=== PATIENT | female | born 1960 | race Caucasian/White ===

== ENCOUNTER 2018-05-16 07:37 | Outpatient (CLI) | payer OTHER ==
[~2018-05-16 07:37] MED LIST: ATOR40TA71 PO; FOLI1TAB16 PO; MULT1TAB74 PO; THI100T PO
[2018-05-16 08:51] LABS: BASOPHILS % (AUTO) 0.3 % (0-1); EOSINOPHILS # (AUTO) 0.2 X10'3 (0-0.9); EOSINOPHILS % (AUTO) 2.5 % (0-6); HEMATOCRIT 35.7 % (35.0-45.0); HEMOGLOBIN 12.3 g/dl (12.0-16.0); LYMPHOCYTES # (AUTO) 1.9 X10'3 (1.1-4.8); LYMPHOCYTES % (AUTO) 27.8 % (21-51); MEAN CORPUSCULAR HEMOGLOBIN 33.8 PG (27.0-31.0); MEAN CORPUSCULAR HGB CONC 34.5 % (33.0-36.5); MEAN CORPUSCULAR VOLUME 97.9 FL (78-98); MONOCYTES # (AUTO) 0.5 X10'3 (0-0.9); MONOCYTES % (AUTO) 6.6 % (2-12); NEUTROPHILS # (AUTO) 4.4 X10'3 (1.8-7.7); NEUTROPHILS % (AUTO) 62.8 % (42-75); PLATELET COUNT 301 X10'3 (140-440); RED BLOOD COUNT 3.64 X10'6 (4.20-5.60); RED CELL DISTRIBUTION WIDTH 12.9 % (11.5-14.5)
[2018-05-16 09:12] LABS: ALANINE AMINOTRANSFERASE 26 U/L (12-78); ALBUMIN 3.6 G/DL (3.4-5.0); ALKALINE PHOSPHATASE 76 IU/L (46-116); ANION GAP 8 (8-16); ASPARTATE AMINO TRANSFERASE 16 U/L (10-37); BILIRUBIN,TOTAL 0.3 MG/DL (0.1-1.0); BLOOD UREA NITROGEN 12 MG/DL (7-18); BUN/CREATININE RATIO 20.7 (6.6-38.0); CALCIUM 8.7 MG/DL (8.5-10.1); CHLORIDE 104 MMOL/L (99-107); CHOL/HDL RATIO 3.5 (0.00-4.99); CHOLESTEROL 211 MG/DL (0-200); CREATININE 0.58 MG/DL (0.40-0.90); GLUCOSE 96 MG/DL (70-104); HDL CHOLESTEROL 60 MG/DL (35-60); LDL CHOLESTEROL 132 MG/DL (50-100); POTASSIUM 4.2 MMOL/L (3.5-5.1); SODIUM 140 MMOL/L (135-145); TOTAL CARBON DIOXIDE 28.4 MMOL/L (24-32); TOTAL PROTEIN 7.2 G/DL (6.4-8.2); TRIGLYCERIDES 111 MG/DL (20-135); eGFR > 90 ML/MIN
== END 2018-05-16 23:59 | disposition home or self-care (01) ==
LOC: LAB 07:37
DX: Z00.01 Encounter for general adult medical examination with abnormal findings (principal); E03.8 Other specified hypothyroidism; Z87.891 Personal history of nicotine dependence
CPT/HCPCS: 36415; 80053; 80061; 84443; 84480; 85025

== ENCOUNTER 2019-05-30 07:44 | Outpatient (CLI) | payer OTHER ==
[2019-05-30 08:46] LABS: BASOPHILS % (AUTO) 0.4 % (0-1); EOSINOPHILS # (AUTO) 0.1 X10'3 (0-0.9); EOSINOPHILS % (AUTO) 1.6 % (0-6); HEMATOCRIT 36.5 % (35.0-45.0); HEMOGLOBIN 12.8 g/dl (12.0-16.0); LYMPHOCYTES # (AUTO) 2.2 X10'3 (1.1-4.8); LYMPHOCYTES % (AUTO) 33.1 % (21-51); MEAN CORPUSCULAR HEMOGLOBIN 33.6 PG (27.0-31.0); MEAN CORPUSCULAR VOLUME 96.1 FL (78-98); MEAN PLATELET VOLUME 8.1 FL (7.4-10.4); MONOCYTES # (AUTO) 0.4 X10'3 (0-0.9); NEUTROPHILS % (AUTO) 58.9 % (42-75); PLATELET COUNT 339 X10'3 (140-440); RED CELL DISTRIBUTION WIDTH 12.9 % (11.5-14.5); WHITE BLOOD COUNT 6.8 X10'3 (4.5-11.0)
[2019-05-30 09:07] LABS: ALANINE AMINOTRANSFERASE 25 U/L (12-78); ALBUMIN 3.8 G/DL (3.4-5.0); ALKALINE PHOSPHATASE 74 IU/L (46-116); ANION GAP 9 (8-16); ASPARTATE AMINO TRANSFERASE 23 U/L (10-37); BILIRUBIN,TOTAL 0.3 MG/DL (0.1-1.0); BLOOD UREA NITROGEN 15 MG/DL (7-18); BUN/CREATININE RATIO 18.5 (6.6-38.0); CALCIUM 9.7 MG/DL (8.5-10.1); CHLORIDE 104 MMOL/L (99-107); CHOL/HDL RATIO 3.5 (0.00-4.99); CHOLESTEROL 200 MG/DL (0-200); CREATININE 0.81 MG/DL (0.40-0.90); GLUCOSE 105 MG/DL (70-104); HDL CHOLESTEROL 57 MG/DL (35-60); LDL CHOLESTEROL 120 MG/DL (50-100); POTASSIUM 4.1 MMOL/L (3.5-5.1); SODIUM 141 MMOL/L (135-145); TOTAL CARBON DIOXIDE 27.7 MMOL/L (24-32); TOTAL PROTEIN 7.8 G/DL (6.4-8.2); TRIGLYCERIDES 167 MG/DL (20-135); eGFR 73 ML/MIN
[2019-05-31 07:35] LABS: THIIODOTHRONINE, FREE, SERUM 2.7 pg/mL (2.0-4.4)
[2019-05-31 08:16] LABS: MICROALB/CRT, RATIO 13.4 mg/g creat (0.0-30.0)
== END 2019-05-30 23:59 | disposition home or self-care (01) ==
LOC: LAB 07:44
PROVIDERS: ATTEND Physician Assistant
DX: E03.8 Other specified hypothyroidism (principal); E78.5 Hyperlipidemia, unspecified; Z87.891 Personal history of nicotine dependence
CPT/HCPCS: 36415; 80053; 80061; 82043; 82570; 84439; 84443; 84481; 85025

== ENCOUNTER 2019-05-31 08:48 | Outpatient (CLI) | payer OTHER | END 2019-05-31 23:59 | disposition home or self-care (01) | LOC: RAD 08:48 | DX: R10.11 Right upper quadrant pain (principal); Z87.891 Personal history of nicotine dependence | CPT/HCPCS: 76700 ==

== ENCOUNTER 2019-09-19 07:45 | Outpatient (CLI) | payer OTHER ==
[2019-09-19 08:36] LABS: HEMOGLOBIN A1C 5.6 % (4.5-6.2)
[2019-09-19 08:39] LABS: CHOL/HDL RATIO 3.8 (0.00-4.99); CHOLESTEROL 197 MG/DL (0-200); HDL CHOLESTEROL 52 MG/DL (35-60); LDL CHOLESTEROL 108 MG/DL (50-100); TRIGLYCERIDES 181 MG/DL (20-135)
== END 2019-09-19 23:59 | disposition home or self-care (01) ==
LOC: LAB 07:45
DX: E78.5 Hyperlipidemia, unspecified (principal); R73.01 Impaired fasting glucose
CPT/HCPCS: 36415; 80061; 83036

== ENCOUNTER 2020-07-03 06:07 | Outpatient (CLI) | payer BC ==
[~2020-07-03 06:07] MED LIST changes: +MULT-620 PO; -MULT1TAB74 PO
[2020-07-03 06:38] LABS: BASOPHILS % (AUTO) 0.4 % (0-1); EOSINOPHILS # (AUTO) 0.2 X10'3 (0-0.9); EOSINOPHILS % (AUTO) 2.6 % (0-6); HEMATOCRIT 39.2 % (35.0-45.0); HEMOGLOBIN 13.2 g/dl (12.0-16.0); LYMPHOCYTES # (AUTO) 2.5 X10'3 (1.1-4.8); LYMPHOCYTES % (AUTO) 33.7 % (21-51); MEAN CORPUSCULAR HEMOGLOBIN 31.7 PG (27.0-31.0); MEAN CORPUSCULAR HGB CONC 33.7 g/dL (33.0-36.5); MEAN CORPUSCULAR VOLUME 94.2 FL (78-98); MEAN PLATELET VOLUME 7.5 FL (7.4-10.4); MONOCYTES # (AUTO) 0.4 X10'3 (0-0.9); MONOCYTES % (AUTO) 5.5 % (2-12); NEUTROPHILS # (AUTO) 4.3 X10'3 (1.8-7.7); NEUTROPHILS % (AUTO) 57.8 % (42-75); PLATELET COUNT 342 X10'3 (140-440); RED BLOOD COUNT 4.17 X10'6 (4.20-5.60); WHITE BLOOD COUNT 7.4 X10'3 (4.5-11.0)
[2020-07-03 06:39] LABS: CLARITY,URINE CLOUDY (Clear); COLOR,URINE YELLOW (Yellow); GLUCOSE, URINE NEGATIVE (Neg); KETONES,URINE NEGATIVE (Neg); LEUKOCYTE ESTERASE ,URINE SMALL (Neg); NITRITES, URINE NEGATIVE (Neg); OCCULT BLOOD,URINE SMALL (Neg); PROTEIN,URINE NEGATIVE (Neg); UROBILINOGEN,URINE 0.2 E.U/dL (0.2-1.0)
[2020-07-03 06:43] LABS: UA COLLECTION TYPE CLN CATCH MIDSTREAM
[2020-07-03 06:49] LABS: RBC,URINE 0-2 /HPF (0-2); WBC,URINE 50-100 /HPF (0-4)
[2020-07-03 06:50] LABS: BACTERIA,URINE 1+ /HPF (Neg); SQUAMOUS EPITHELIAL CELL,UR MANY /LPF (FEW)
[2020-07-03 07:04] LABS: ALANINE AMINOTRANSFERASE 32 U/L (12-78); ALKALINE PHOSPHATASE 70 IU/L (46-116); ANION GAP 9 (8-16); ASPARTATE AMINO TRANSFERASE 19 U/L (10-37); BILIRUBIN,TOTAL 0.4 MG/DL (0.1-1.0); BLOOD UREA NITROGEN 14 MG/DL (7-18); BUN/CREATININE RATIO 18.4 (6.6-38.0); CALCIUM 9.5 MG/DL (8.5-10.1); CHLORIDE 105 MMOL/L (99-107); CHOLESTEROL 225 MG/DL (0-200); CREATININE 0.76 MG/DL (0.40-0.90); GLUCOSE 107 MG/DL (70-104); HDL CHOLESTEROL 56 MG/DL (35-60); LDL CHOLESTEROL 123 MG/DL (50-100); POTASSIUM 4.3 MMOL/L (3.5-5.1); SODIUM 142 MMOL/L (135-145); TOTAL CARBON DIOXIDE 27.6 MMOL/L (24-32); TRIGLYCERIDES 187 MG/DL (20-135); eGFR 78 ML/MIN
== END 2020-07-03 23:59 | disposition home or self-care (01) ==
LOC: LAB 06:07
PROVIDERS: ATTEND Family Medicine
DX: M85.841 Other specified disorders of bone density and structure, right hand (principal); M19.041 Primary osteoarthritis, right hand; M85.842 Other specified disorders of bone density and structure, left hand; M19.042 Primary osteoarthritis, left hand
CPT/HCPCS: 36415; 73130; 80053; 80061; 81001; 82306; 84439; 84443; 85025

== ENCOUNTER 2020-08-26 08:53 | Emergency (ER) | payer BC ==
[~2020-08-26] VITALS: Ht 152.4 cm; Wt 62.7 kg
[2020-08-26] MEDS ORDERED: normal saline 1000ML IV soln IV ONE (09:15)
[2020-08-26 09:47] LABS: BASOPHILS % (AUTO) 0.2 % (0-1); EOSINOPHILS # (AUTO) 0.1 X10'3 (0-0.9); EOSINOPHILS % (AUTO) 0.6 % (0-6); HEMATOCRIT 38.4 % (35.0-45.0); HEMOGLOBIN 12.9 g/dl (12.0-16.0); LYMPHOCYTES # (AUTO) 1.7 X10'3 (1.1-4.8); LYMPHOCYTES % (AUTO) 11.8 % (21-51); MEAN CORPUSCULAR HEMOGLOBIN 31.7 PG (27.0-31.0); MEAN CORPUSCULAR HGB CONC 33.5 g/dL (33.0-36.5); MEAN CORPUSCULAR VOLUME 94.8 FL (78-98); MEAN PLATELET VOLUME 7.9 FL (7.4-10.4); MONOCYTES # (AUTO) 1.1 X10'3 (0-0.9); MONOCYTES % (AUTO) 7.7 % (2-12); NEUTROPHILS # (AUTO) 11.3 X10'3 (1.8-7.7); NEUTROPHILS % (AUTO) 79.7 % (42-75); PLATELET COUNT 353 X10'3 (140-440); RED BLOOD COUNT 4.05 X10'6 (4.20-5.60); RED CELL DISTRIBUTION WIDTH 12.8 % (11.5-14.5); WHITE BLOOD COUNT 14.2 X10'3 (4.5-11.0)
[2020-08-26 09:49] LABS: CLARITY,URINE SLIGHTLY CLOUDY (Clear); COLOR,URINE YELLOW (Yellow); GLUCOSE, URINE NEGATIVE (Neg); KETONES,URINE NEGATIVE (Neg); LEUKOCYTE ESTERASE ,URINE MODERATE (Neg); NITRITES, URINE NEGATIVE (Neg); OCCULT BLOOD,URINE TRACE-INTACT (Neg); PH,URINE 7.5 (4.8-8.0); PROTEIN,URINE NEGATIVE (Neg); UROBILINOGEN,URINE 0.2 E.U/dL (0.2-1.0)
[2020-08-26 09:55] LABS: UA COLLECTION TYPE CLN CATCH MIDSTREAM
[2020-08-26 10:04] LABS: BACTERIA,URINE FEW /HPF (Neg); HYALINE CASTS 0-3 /LPF (NEGATIVE); RBC,URINE 0-2 /HPF (0-2); SQUAMOUS EPITHELIAL CELL,UR MODERATE /LPF (FEW)
[2020-08-26] MEDS ORDERED: CefTRIAXone 2gm/D5W 50ml BAG 50 ML IV ONE (10:10)
[2020-08-26 10:34] LABS: ALANINE AMINOTRANSFERASE 45 U/L (12-78); ALBUMIN 4.1 G/DL (3.4-5.0); ALKALINE PHOSPHATASE 65 IU/L (46-116); ANION GAP 10 (8-16); ASPARTATE AMINO TRANSFERASE 28 U/L (10-37); BILIRUBIN,TOTAL 0.5 MG/DL (0.1-1.0); BLOOD UREA NITROGEN 11 MG/DL (7-18); BUN/CREATININE RATIO 14.9 (6.6-38.0); CALCIUM 9.4 MG/DL (8.5-10.1); CHLORIDE 101 MMOL/L (99-107); CREATININE 0.74 MG/DL (0.40-0.90); GLUCOSE 110 MG/DL (70-104); POTASSIUM 3.7 MMOL/L (3.5-5.1); SODIUM 138 MMOL/L (135-145); TOTAL CARBON DIOXIDE 27.5 MMOL/L (24-32); TOTAL PROTEIN 8.2 G/DL (6.4-8.2); eGFR 81 ML/MIN
[2020-08-26] MEDS ORDERED: CEPH250T PO (10:47)
[2020-08-26 11:46] VITALS: BP 127/66
== END 2020-08-26 11:50 | disposition home or self-care (01) ==
LOC: ER 08:54
DX: N39.0 Urinary tract infection, site not specified (principal); R10.2 Pelvic and perineal pain; I10 Essential (primary) hypertension; E03.9 Hypothyroidism, unspecified; J44.9 Chronic obstructive pulmonary disease, unspecified; Z86.73 Personal history of transient ischemic attack (TIA), and cerebral infarction without residual deficits; Z72.89 Other problems related to lifestyle; Z88.8 Allergy status to other drugs, medicaments and biological substances; Z79.899 Other long term (current) drug therapy
CPT/HCPCS: 36415; 80053; 81001; 83605; 84145; 85025; 87040; 87088; 96361; 96365; 99284; J0696; J7030

== ENCOUNTER 2020-08-29 18:33 | Emergency (ER) | payer BC ==
[~2020-08-29] VITALS: Ht 152.4 cm; Wt 61.4 kg
[~2020-08-29 18:33] MED LIST changes: +CEPH250T PO
[2020-08-29 19:26] LABS: CLARITY,URINE CLEAR (Clear); COLOR,URINE YELLOW (Yellow); GLUCOSE, URINE NEGATIVE (Neg); KETONES,URINE NEGATIVE (Neg); LEUKOCYTE ESTERASE ,URINE TRACE (Neg); NITRITES, URINE NEGATIVE (Neg); OCCULT BLOOD,URINE NEGATIVE (Neg); PH,URINE 5.5 (4.8-8.0); PROTEIN,URINE NEGATIVE (Neg); UROBILINOGEN,URINE 0.2 E.U/dL (0.2-1.0)
[2020-08-29 19:27] LABS: UA COLLECTION TYPE CLN CATCH MIDSTREAM
[2020-08-29 19:30] LABS: BACTERIA,URINE 1+ /HPF (Neg); RBC,URINE NONE SEEN /HPF (0-2); SQUAMOUS EPITHELIAL CELL,UR MODERATE /LPF (FEW)
[2020-08-29 20:02] VITALS: BP 118/75
== END 2020-08-29 20:04 | disposition home or self-care (01) ==
LOC: EEVIPCON 18:33 → ER 18:33
DX: R10.84 Generalized abdominal pain (principal); R00.0 Tachycardia, unspecified; R50.9 Fever, unspecified; I10 Essential (primary) hypertension; E03.9 Hypothyroidism, unspecified; Z86.73 Personal history of transient ischemic attack (TIA), and cerebral infarction without residual deficits; Z72.89 Other problems related to lifestyle; Z88.8 Allergy status to other drugs, medicaments and biological substances; Z79.2 Long term (current) use of antibiotics; Z79.899 Other long term (current) drug therapy
CPT/HCPCS: 81001; 87088; 99283

== ENCOUNTER 2020-10-15 07:54 | Day surgery (SDC) | payer BC ==
[~2020-10-15] VITALS: Ht 152.4 cm; Wt 62.7 kg
[~2020-10-15 07:54] MED LIST changes: -CEPH250T PO
[2020-10-15] MEDS ORDERED: fentaNYL/PF 50MCG/1 ML 2ML syringe ONE ×2 (08:03→08:58)
[2020-10-15] MEDS ORDERED: MIDAZolam 1 MG/ML 5ML VIAL ONE (08:03)
[2020-10-15 08:25] VITALS: BP 123/74
[2020-10-15] MEDS ORDERED: ESTR0.9T2 PO (08:40)
[2020-10-15] MEDS ORDERED: PROG100C11 PO (08:41)
[2020-10-15] MEDS ORDERED: FENO145T46 PO (08:41)
[2020-10-15] MEDS ORDERED: glucagon, human recombinant 1mg kit ONE (08:56)
[2020-10-15 09:21] VITALS: BP 106/61
[2020-10-15 09:31] VITALS: BP 103/55
[2020-10-15 09:41] VITALS: BP 104/57
[2020-10-15 09:51] VITALS: BP 96/63
== END 2020-10-15 10:00 | disposition home or self-care (01) ==
LOC: GI LAB 07:54
PROVIDERS: ATTEND Internal Medicine Gastroenterology
DX: Z12.11 Encounter for screening for malignant neoplasm of colon (principal); K57.30 Diverticulosis of large intestine without perforation or abscess without bleeding; Z88.8 Allergy status to other drugs, medicaments and biological substances; Z79.899 Other long term (current) drug therapy
CPT/HCPCS: 36415; 45378; 80053; 80061; 99152; 99153; J1610; J2250; J3010; J7040; A4620

== ENCOUNTER 2021-03-03 08:52 | Outpatient (CLI) | payer BC ==
[~2021-03-03 08:52] MED LIST changes: +ESTR0.9T2 PO; +FENO145T46 PO; -FOLI1TAB16 PO; +PROG100C11 PO; -THI100T PO
[2021-03-03 10:03] LABS: ALANINE AMINOTRANSFERASE 34 U/L (12-78); ALBUMIN/GLOBULIN RATIO 1.2 (1.1-1.5); ALKALINE PHOSPHATASE 43 IU/L (46-116); ANION GAP 9 (8-16); ASPARTATE AMINO TRANSFERASE 23 U/L (10-37); BILIRUBIN,TOTAL 0.3 MG/DL (0.1-1.0); BLOOD UREA NITROGEN 13 MG/DL (7-18); BUN/CREATININE RATIO 17.8 (6.6-38.0); CALCIUM 9.1 MG/DL (8.5-10.1); CHLORIDE 106 MMOL/L (99-107); CHOL/HDL RATIO 2.8 (0.00-4.99); CHOLESTEROL 160 MG/DL (0-200); CREATININE 0.73 MG/DL (0.40-0.90); GLUCOSE 100 MG/DL (70-104); HDL CHOLESTEROL 58 MG/DL (35-60); LDL CHOLESTEROL 79 MG/DL (50-100); POTASSIUM 4.1 MMOL/L (3.5-5.1); SODIUM 143 MMOL/L (135-145); TOTAL CARBON DIOXIDE 27.8 MMOL/L (24-32); TOTAL PROTEIN 7.4 G/DL (6.4-8.2); TRIGLYCERIDES 59 MG/DL (20-135); eGFR 82 ML/MIN
== END 2021-03-03 23:59 | disposition home or self-care (01) ==
LOC: LAB 08:52
PROVIDERS: ATTEND Physician Assistant
DX: E03.9 Hypothyroidism, unspecified (principal); E78.49 Other hyperlipidemia
CPT/HCPCS: 36415; 80053; 80061; 84439; 84443

== ENCOUNTER 2021-08-23 09:10 | Emergency (ER) | payer BC ==
[~2021-08-23] VITALS: Ht 149.9 cm; Wt 52.0 kg
--- NOTE | 2021-08-23 09:40 | NUR ---
To CT with Stroke ANTON Bhatt
[2021-08-23 09:43] LABS: BASOPHILS % (AUTO) 0.3 % (0-1); EOSINOPHILS # (AUTO) 0.1 X10'3 (0-0.9); EOSINOPHILS % (AUTO) 0.8 % (0-6); HEMATOCRIT 35.6 % (35.0-45.0); HEMOGLOBIN 12.7 g/dl (12.0-16.0); LYMPHOCYTES # (AUTO) 1.6 X10'3 (1.1-4.8); LYMPHOCYTES % (AUTO) 23.5 % (21-51); MEAN CORPUSCULAR HEMOGLOBIN 35.3 PG (27.0-31.0); MEAN CORPUSCULAR HGB CONC 35.6 g/dL (33.0-36.5); MEAN CORPUSCULAR VOLUME 98.9 FL (78-98); MEAN PLATELET VOLUME 7.8 FL (7.4-10.4); MONOCYTES # (AUTO) 0.4 X10'3 (0-0.9); MONOCYTES % (AUTO) 6.2 % (2-12); NEUTROPHILS # (AUTO) 4.8 X10'3 (1.8-7.7); NEUTROPHILS % (AUTO) 69.2 % (42-75); PLATELET COUNT 394 X10'3 (140-440); RED CELL DISTRIBUTION WIDTH 13.2 % (11.5-14.5)
[2021-08-23 09:53] LABS: APTT 31 SECONDS (22-32)
[2021-08-23 09:54] LABS: ALANINE AMINOTRANSFERASE 34 U/L (12-78); ALBUMIN 4.2 G/DL (3.4-5.0); ALBUMIN/GLOBULIN RATIO 1.2 (1.1-1.5); ALKALINE PHOSPHATASE 46 IU/L (46-116); ANION GAP 8 (8-16); ASPARTATE AMINO TRANSFERASE 27 U/L (10-37); BILIRUBIN,TOTAL 0.3 MG/DL (0.1-1.0); BLOOD UREA NITROGEN 18 MG/DL (7-18); BUN/CREATININE RATIO 21.4 (6.6-38.0); CALCIUM 9.6 MG/DL (8.5-10.1); CHLORIDE 102 MMOL/L (99-107); CREATININE 0.84 MG/DL (0.40-0.90); GLUCOSE 121 MG/DL (70-104); POTASSIUM 3.8 MMOL/L (3.5-5.1); SODIUM 138 MMOL/L (135-145); TOTAL CARBON DIOXIDE 28.1 MMOL/L (24-32); TOTAL PROTEIN 7.6 G/DL (6.4-8.2); eGFR 70 ML/MIN
[2021-08-23] MEDS ORDERED: iohexol 350MG/ML 100ml bottle IV ONE (10:34)
--- NOTE | 2021-08-23 10:48 | NUR ---
TO CTA with ground transportation operator.
[2021-08-23 12:30] VITALS: BP 105/70
== END 2021-08-23 14:19 | disposition home or self-care (01) ==
LOC: ER 09:11
DX: G45.9 Transient cerebral ischemic attack, unspecified (principal); G43.B0 Ophthalmoplegic migraine, not intractable; I10 Essential (primary) hypertension; E03.9 Hypothyroidism, unspecified; Z88.8 Allergy status to other drugs, medicaments and biological substances
CPT/HCPCS: 36415; 70450; 70496; 70498; 71045; 80053; 82948; 85025; 85610; 85730; 86885; 86900; 86901; 93005; 99285; Q9967

== ENCOUNTER 2023-05-17 08:00 | Outpatient (CLI) | payer BC ==
[2023-05-17 08:35] LABS: BILIRUBIN,URINE NEGATIVE (Neg); CLARITY,URINE SLIGHTLY CLOUDY (Clear); COLOR,URINE YELLOW (Yellow); GLUCOSE, URINE NEGATIVE (Neg); KETONES,URINE NEGATIVE (Neg); LEUKOCYTE ESTERASE ,URINE SMALL (Neg); NITRITES, URINE NEGATIVE (Neg); OCCULT BLOOD,URINE NEGATIVE (Neg); PROTEIN,URINE NEGATIVE (Neg); UROBILINOGEN,URINE 0.2 E.U/dL (0.2-1.0)
[2023-05-17 08:42] LABS: BASOPHILS % (AUTO) 0.3 % (0-1); EOSINOPHILS # (AUTO) 0.1 X10'3 (0-0.9); EOSINOPHILS % (AUTO) 2.2 % (0-6); HEMATOCRIT 34.1 % (35.0-45.0); HEMOGLOBIN 11.7 g/dl (12.0-16.0); LYMPHOCYTES # (AUTO) 1.8 X10'3 (1.1-4.8); MEAN CORPUSCULAR HEMOGLOBIN 34.2 PG (27.0-31.0); MEAN CORPUSCULAR HGB CONC 34.3 g/dL (33.0-36.5); MEAN CORPUSCULAR VOLUME 99.7 FL (78-98); MEAN PLATELET VOLUME 7.9 FL (7.4-10.4); MONOCYTES # (AUTO) 0.3 X10'3 (0-0.9); MONOCYTES % (AUTO) 6.6 % (2-12); NEUTROPHILS # (AUTO) 2.5 X10'3 (1.8-7.7); NEUTROPHILS % (AUTO) 52.9 % (42-75); PLATELET COUNT 336 X10'3 (140-440); RED BLOOD COUNT 3.42 X10'6 (4.20-5.60); RED CELL DISTRIBUTION WIDTH 13.2 % (11.5-14.5); WHITE BLOOD COUNT 4.7 X10'3 (4.5-11.0)
[2023-05-17 08:49] LABS: SQUAMOUS EPITHELIAL CELL,UR MANY /LPF (FEW); UA COLLECTION TYPE CLN CATCH MIDSTREAM
[2023-05-17 08:50] LABS: BACTERIA,URINE 2+ /HPF (Neg); RBC,URINE 0-2 /HPF (0-2)
[2023-05-17 09:02] LABS: ALANINE AMINOTRANSFERASE 19 U/L (12-78); ALBUMIN 3.9 G/DL (3.4-5.0); ALBUMIN/GLOBULIN RATIO 1.1 (1.1-1.5); ALKALINE PHOSPHATASE 37 IU/L (46-116); ANION GAP 6 (8-16); ASPARTATE AMINO TRANSFERASE 17 U/L (10-37); BILIRUBIN,TOTAL 0.2 MG/DL (0.1-1.0); BLOOD UREA NITROGEN 19 MG/DL (7-18); BUN/CREATININE RATIO 24.7 (10.0-20.0); CALCIUM 10.1 MG/DL (8.5-10.1); CHLORIDE 102 MMOL/L (99-107); CHOL/HDL RATIO 2.4 (0.00-4.99); CHOLESTEROL 155 MG/DL (0-200); CREATININE 0.77 MG/DL (0.40-0.90); FREE T4 (FREE THYROXINE) 1.29 NG/DL (0.73-1.40); GLUCOSE 95 MG/DL (70-104); HDL CHOLESTEROL 65 MG/DL (35-60); LDL CHOLESTEROL 73 MG/DL (50-100); POTASSIUM 3.7 MMOL/L (3.5-5.1); SODIUM 138 MMOL/L (135-145); THYROID STIMULATING HORMONE 4.25 ulU/ml (0.34-4.50); TOTAL CARBON DIOXIDE 29.9 MMOL/L (24-32); TOTAL PROTEIN 7.3 G/DL (6.4-8.2); TRIGLYCERIDES 38 MG/DL (20-135); eGFR 76 ML/MIN
== END 2023-05-17 23:59 | disposition home or self-care (01) ==
LOC: LAB 08:00
PROVIDERS: ATTEND Physician Assistant
DX: E03.9 Hypothyroidism, unspecified (principal); E78.5 Hyperlipidemia, unspecified; R53.83 Other fatigue
CPT/HCPCS: 36415; 80053; 80061; 81001; 84439; 84443; 85025

== ENCOUNTER 2023-11-29 07:12 | Outpatient (CLI) | payer BC ==
[2023-11-29 07:44] LABS: BASOPHILS % (AUTO) 0.4 % (0-1); EOSINOPHILS # (AUTO) 0.1 X10'3 (0-0.9); EOSINOPHILS % (AUTO) 2.1 % (0-6); HEMATOCRIT 34.8 % (35.0-45.0); HEMOGLOBIN 12.2 g/dl (12.0-16.0); LYMPHOCYTES # (AUTO) 1.6 X10'3 (1.1-4.8); LYMPHOCYTES % (AUTO) 30.8 % (21-51); MEAN CORPUSCULAR HEMOGLOBIN 35.2 PG (27.0-31.0); MEAN CORPUSCULAR VOLUME 100.5 FL (78-98); MEAN PLATELET VOLUME 7.8 FL (7.4-10.4); MONOCYTES # (AUTO) 0.4 X10'3 (0-0.9); NEUTROPHILS # (AUTO) 3.1 X10'3 (1.8-7.7); NEUTROPHILS % (AUTO) 58.7 % (42-75); PLATELET COUNT 357 X10'3 (140-440); RED BLOOD COUNT 3.46 X10'6 (4.20-5.60); RED CELL DISTRIBUTION WIDTH 13.4 % (11.5-14.5); WHITE BLOOD COUNT 5.2 X10'3 (4.5-11.0)
[2023-11-29 08:02] LABS: CHOL/HDL RATIO 3.2 (0.00-4.99); CHOLESTEROL 190 MG/DL (0-200); HDL CHOLESTEROL 60 MG/DL (35-60); LDL CHOLESTEROL 108 MG/DL (50-100); TRIGLYCERIDES 75 MG/DL (20-135)
[2023-11-30 12:21] LABS: FOLATE SERUM(FOLIC) >20.0 ng/mL (>3.0)
== END 2023-11-29 23:59 | disposition home or self-care (01) ==
LOC: LAB 07:12
PROVIDERS: ATTEND Physician Assistant
DX: E78.5 Hyperlipidemia, unspecified (principal); R53.83 Other fatigue; D64.9 Anemia, unspecified
CPT/HCPCS: 36415; 80061; 82607; 82746; 85025

== ENCOUNTER 2023-12-08 08:57 | Outpatient (CLI) | payer BC ==
[2023-12-08] VITALS (9 sets, daily range): BP systolic 105–116; BP diastolic 46–71; PULSE 83–112; RESP 18; O2SAT 100
[~2023-12-08] VITALS: Ht 152.4 cm; Wt 59.0 kg
[2023-12-08] MEDS ORDERED: aminophylline inj. 10 ML IV ONE (10:51)
[2023-12-08] MEDS: regadenoson 0.4mg/5ml syringe IV ONE (11:19)
[2023-12-08] MEDS: aminophylline 500mg/20ml vial IV ONE (11:26)
[2023-12-08 12:52] LABS: FREE T4 (FREE THYROXINE) 1.39 NG/DL (0.73-1.40); THYROID STIMULATING HORMONE 2.82 ulU/ml (0.34-4.50)
== END 2023-12-08 23:59 | disposition home or self-care (01) ==
LOC: RAD 08:57
PROVIDERS: ATTEND Physician Assistant
DX: N95.1 Menopausal and female climacteric states (principal); R07.9 Chest pain, unspecified; E03.9 Hypothyroidism, unspecified
CPT/HCPCS: 36415; 82670; 84439; 84443; 93017; A9500; J0280; J2785; 78452

== ENCOUNTER 2023-12-14 09:57 | Day surgery (SDC) | payer BC ==
[~2023-12-14] VITALS: Ht 149.9 cm; Wt 60.4 kg
[2023-12-14] VITALS (7 sets, daily range): BP systolic 95–137; BP diastolic 37–77; PULSE 75–93; RESP 12–17; TEMP 98.2; O2SAT 95–100
[2023-12-14] MEDS ORDERED: ESTR1TAB28 PO (10:30)
[2023-12-14] MEDS ORDERED: PROG100C37 PO (10:30)
[2023-12-14] MEDS ORDERED: NITR0.4T51 (10:30)
[2023-12-14] MEDS ORDERED: LORA10TA7 PO (10:30)
[2023-12-14] MEDS ORDERED: LEVO125T8 PO (10:30)
[2023-12-14] MEDS ORDERED: [UNRECOGNIZED DRUG - CODE] OP (10:30)
[2023-12-14] MEDS ORDERED: OMEG100037 PO (10:30)
[2023-12-14] MEDS ORDERED: ATOR-2 PO (10:30)
[2023-12-14 10:59] LABS: BASOPHILS % (AUTO) 0.3 % (0-1); EOSINOPHILS # (AUTO) 0.1 X10'3 (0-0.9); EOSINOPHILS % (AUTO) 1.9 % (0-6); HEMATOCRIT 35.7 % (35.0-45.0); HEMOGLOBIN 12.2 g/dl (12.0-16.0); LYMPHOCYTES % (AUTO) 29.5 % (21-51); MEAN CORPUSCULAR HEMOGLOBIN 32.4 PG (27.0-31.0); MEAN CORPUSCULAR HGB CONC 34.1 g/dL (33.0-36.5); MEAN CORPUSCULAR VOLUME 94.9 FL (78-98); MEAN PLATELET VOLUME 7.9 FL (7.4-10.4); MONOCYTES # (AUTO) 0.5 X10'3 (0-0.9); MONOCYTES % (AUTO) 6.7 % (2-12); NEUTROPHILS # (AUTO) 4.2 X10'3 (1.8-7.7); NEUTROPHILS % (AUTO) 61.6 % (42-75); PLATELET COUNT 350 X10'3 (140-440); RED BLOOD COUNT 3.76 X10'6 (4.20-5.60); RED CELL DISTRIBUTION WIDTH 13.2 % (11.5-14.5); WHITE BLOOD COUNT 6.8 X10'3 (4.5-11.0)
[2023-12-14 11:13] LABS: APTT 29 SECONDS (22-32); PROTHROMBIN TIME 10.3 SECONDS (9.0-12.0)
[2023-12-14] MEDS: diphenhydrAMINE 25mg capsule PO PRN (11:23)
[2023-12-14] MEDS: normal saline 1,000 ML IV SCH (11:23)
[2023-12-14 11:34] LABS: ALBUMIN 4.1 G/DL (3.4-5.0); ANION GAP 9 (8-16); BLOOD UREA NITROGEN 17 MG/DL (7-18); BUN/CREATININE RATIO 22.1 (10.0-20.0); CALCIUM 9.8 MG/DL (8.5-10.1); CHLORIDE 102 MMOL/L (99-107); CHOL/HDL RATIO 2.6 (0.00-4.99); CHOLESTEROL 174 MG/DL (0-200); CREATININE 0.77 MG/DL (0.40-0.90); GLUCOSE 78 MG/DL (70-104); HDL CHOLESTEROL 66 MG/DL (35-60); LDL CHOLESTEROL 94 MG/DL (50-100); SODIUM 138 MMOL/L (135-145); TOTAL CARBON DIOXIDE 27.3 MMOL/L (24-32); TRIGLYCERIDES 55 MG/DL (20-135); eCRCL 53 ML/MIN; eGFR 76 ML/MIN
[2023-12-14] MEDS ORDERED: verapamil 2.5 mg/ml inj IV ONE (12:22)
[2023-12-14] MEDS ORDERED: LIDOcaine 1% (10mg/ml) 2ml vial ONE (12:22)
[2023-12-14] MEDS ORDERED: fentaNYL/PF 50MCG/1 ML 2ML syringe ONE (12:22)
[2023-12-14] MEDS ORDERED: heparin 1,000unit/ml 10ml vial 10 ML ONE (12:22)
[2023-12-14] MEDS ORDERED: midazolam 1 mg/ML 2ml injection ONE ×2 (12:22→13:51)
[2023-12-14] MEDS ORDERED: iohexol 350MG/ML 100ml bottle IV ONE (12:22)
[2023-12-14] MEDS ORDERED: nitroGLYCERIN 500mcg/5mL D5W 5 ML IV ONE (12:25)
[2023-12-14] MEDS ORDERED: HYDROcodone/acetaminophen 5mg/325mg tablet PO PRN (14:30)
[2023-12-14] MEDS ORDERED: HYDROcodone/acetaminophen 10/325mg tab PO PRN (14:30)
== END 2023-12-14 16:15 | disposition home or self-care (01) ==
LOC: SSTAY O 09:57
PROVIDERS: ATTEND Student in an Organized Health Care Education/Training Program
DX: R94.39 Abnormal result of other cardiovascular function study (principal); E03.9 Hypothyroidism, unspecified; E78.00 Pure hypercholesterolemia, unspecified; Z79.890 Hormone replacement therapy; Z79.899 Other long term (current) drug therapy; Z88.8 Allergy status to other drugs, medicaments and biological substances
CPT/HCPCS: 36415; 80048; 80061; 85025; 85610; 85730; 93005; 93458; A6258; J1644; J2250; J3010; J3490; J7030; Q0163; Q9967; 96360; 99152; A6402; C1894

== ENCOUNTER 2023-12-21 08:34 | Outpatient (CLI) | payer BC ==
[~2023-12-21 08:34] MED LIST changes: +ATOR-2 PO; -ATOR40TA71 PO; -ESTR0.9T2 PO; +ESTR1TAB28 PO; +LEVO125T8 PO; +LORA10TA7 PO; +NITR0.4T51; +OMEG100037 PO; -PROG100C11 PO; +PROG100C37 PO; +[UNRECOGNIZED DRUG - CODE] OP
== END 2023-12-21 23:59 | disposition home or self-care (01) ==
LOC: MRI 08:34
PROVIDERS: ATTEND Physician Assistant
DX: M19.011 Primary osteoarthritis, right shoulder (principal); M75.121 Complete rotator cuff tear or rupture of right shoulder, not specified as traumatic; M25.811 Other specified joint disorders, right shoulder; M75.111 Incomplete rotator cuff tear or rupture of right shoulder, not specified as traumatic; M25.511 Pain in right shoulder
CPT/HCPCS: 73030; 73221

== ENCOUNTER 2023-12-21 08:41 | Outpatient (CLI) | payer BC | END 2023-12-21 23:59 | disposition home or self-care (01) | LOC: CARD DIAG 08:41 | PROVIDERS: ATTEND Physician Assistant | DX: I08.1 Rheumatic disorders of both mitral and tricuspid valves (principal); R07.9 Chest pain, unspecified | CPT/HCPCS: 93306 ==

== ENCOUNTER 2024-03-20 14:30 | Outpatient (CLI) | payer BC ==
[2024-03-23 06:02] LABS: PROGESTERONE 1.1 ng/mL (.)
== END 2024-03-20 23:59 | disposition home or self-care (01) ==
LOC: LAB 14:30
PROVIDERS: ATTEND Physician Assistant
DX: N95.1 Menopausal and female climacteric states (principal)
CPT/HCPCS: 36415; 82670; 84144

== ENCOUNTER 2025-04-03 10:15 | Outpatient (CLI) | payer BC ==
--- NOTE | 2025-04-03 12:32 | RADIOLOGY REPORT ---
CLINICAL INFORMATION: 64 years old, Female; PAIN IN RIGHT SHOULDER. TECHNIQUE: Multisequence multiplanar MRI images of the right shoulder were obtained without contrast . COMPARISON: DI SHOULDER, COMPLETE (MIN 2 VWS) on DOS: 12/21/23, MR MRI UPPER EXTREMITY RIGHT on DOS: , HAND, COMPLETE (3VW MIN) on DOS: 07/03/20 FINDINGS: Acromioclavicular joint: There is mild acromioclavicular hypertrophy and mild edema. There is a downw dewayne sloping acromion. There is a lobulated fluid collection adjacent to the posterior inferior aspect of the acromioclavicular joint and along the myotendinous junction of the supraspinatus muscle measu ring up to 3.2 x 1.0 x 0.8 cm, possibly ganglion cyst. Small amount of fluid in the subacromial / lutz bdeltoid bursa. Rotator cuff tendons: Interstitial tear of the supraspinatus tendon insertional footprint measures up to 0.8 cm in AP dimension and 0.6 cm in transverse dimension, with portions of the tear approaching nearly 50% of the tendon thickness. The infraspinatus, teres minor, and subscapularis tendons are int act. Biceps tendon: No significant tendinosis. No evidence of attrition or tear. Labrum: No labral tear identified. Bones: No fracture or focal marrow contusion. Muscles: Normal muscle bulk. No atrophy. Other: No other significant findings. IMPRESSION: 1. Lobulated cystic structure along the posterior inferior aspect of the acromioclavicular joint and coursing along the myotendinous junction of the supraspinatus muscle, possibly a ganglion cyst. 2. Mild acromioclavicular capsular hypertrophy with mild subacromial/subdeltoid bursitis. 3. Partial-thickness interstitial tear in the supraspinatus tendon insertional footprint.
== END 2025-04-03 23:59 | disposition home or self-care (01) ==
LOC: MRI02 10:15
PROVIDERS: ATTEND Physician Assistant
DX: M75.111 Incomplete rotator cuff tear or rupture of right shoulder, not specified as traumatic (principal); M89.311 Hypertrophy of bone, right shoulder; M25.511 Pain in right shoulder; M75.51 Bursitis of right shoulder
CPT/HCPCS: 73221

== ENCOUNTER 2025-04-04 08:11 | Outpatient (CLI) | payer BC ==
[2025-04-04 08:39] LABS: LEUKOCYTE ESTERASE ,URINE NEGATIVE (Neg); NITRITES, URINE NEGATIVE (Neg); OCCULT BLOOD,URINE NEGATIVE (Neg)
[2025-04-04 08:40] LABS: MEAN PLATELET VOLUME 7.8 FL (7.4-10.4); RED CELL DISTRIBUTION WIDTH 14.0 % (11.5-14.5)
[2025-04-04 08:45] LABS: UA COLLECTION TYPE NON-SPECIFIED
[2025-04-04 09:05] LABS: CHOL/HDL RATIO 2.7 (0.00-4.99); CREATININE 0.83 MG/DL (0.40-0.90); LDL CHOLESTEROL 102 MG/DL (50-100); TOTAL CARBON DIOXIDE 28.0 MMOL/L (24-32); eGFR 70 ML/MIN
== END 2025-04-04 23:59 | disposition home or self-care (01) ==
LOC: RAD 08:11
PROVIDERS: ATTEND Physician Assistant
DX: E03.9 Hypothyroidism, unspecified (principal); N95.1 Menopausal and female climacteric states; E78.5 Hyperlipidemia, unspecified; F43.21 Adjustment disorder with depressed mood; E55.9 Vitamin D deficiency, unspecified; R53.83 Other fatigue; R73.9 Hyperglycemia, unspecified
CPT/HCPCS: 36415; 80053; 80061; 81003; 82306; 82607; 82670; 82746; 84144; 84439; 84443; 85025